=== PATIENT | female | born 1945 | race Caucasian/White ===

== ENCOUNTER → 2016-10-11 | Outpatient (CLI) | payer OTHER ==
[2013-03-11 11:38] VITALS: BP 167/78
--- NOTE | 2016-10-15 16:28 | MRI ---
History: Left knee pain for 1 month. Left knee meniscus derangement. Technique: Multiplanar, multi sequence MR imaging of the left knee was performed without IV contrast . Comparison: Bilateral knee radiographs dated 09/18/2016. Findings: There is increased T2 signal within the anteromedial aspect of the ACL distally, suggesting a partia l thickness tear of the anteromedial bundle best demonstrated on coronal PD fat sat images 17 and 18 series 701. The posterior cruciate ligament is intact. There is a complex tear involving the body and posterior horn of the medial meniscus, with an unders urface flap component involving the body. A small inferiorly displaced flap is seen within the menis cyndi tibial recess as seen on coronal PD fat sat images 14-17. There is a horizontal cleavage tear in volving the body of the lateral meniscus. This is seen on coronal PD fat sat image 19. The medial collateral ligament demonstrates a partial thickness tear distally at its tibial insertio n. There is edema superficial to the MCL. The proximal MCL appears mildly thickened. The iliotibial band, fibular collateral ligament, biceps femoris tendon are intact. The quadriceps and the patellar tendons are intact. There is a small joint effusion. There is a minimally depressed medial tibial plateau fracture. Subcortical fracture line measures 1. 7 cm transverse by 1.9 cm AP dimension there is approximate 2 mm of cortical depression within the c entral aspect medial tibial plateau. There is mainly comminuted fragment along the medial corner of the medial tibial plateau. There is mild fissuring of the overlying articular cartilage with no foca l full-thickness cartilage defect demonstrated. There is partial thickness chondral fissuring noted along the medial femoral condyle. The patella is of normal morphology with 3 mm of lateral patellar subluxation. There is a partial th ickness tear of the medial retinaculum at the femoral attachment there is grade 3 chondromalacia kierra ng the medial patellar facet. There is edema and thickening within the semimembranosus tendon suggesting a partial thickness tear. There is fluid within the media gastrocnemius-semimembranosus bursa which is dissecting distally al ramone the medial gastrocnemius and medial aspect of proximal tibia. Popliteal cyst measures up to 3 cm in greatest transverse dimension by 6 mm by proximal 4.7 cm craniocaudal. There is a 7 mm low signa l structure within the popliteal cyst which may be secondary to synovial thickening /synovitis or an osteochondral loose body. There is edema within popliteus which may be secondary to the adjacent ti bial fracture traverses grade 2 myotendinous strain. There is perifascial edema noted. Impression: 1. Complex tear involving the body and posterior horn of the medial meniscus, with an undersurface f lap component and displaced meniscal flap within the meniscal tibial recess. There is a horizontal c leavage tear of the lateral meniscus body. 2. Medial tibial plateau fracture with approximate 2 mm of cortical depression centrally and mild ov erlying chondral fissuring. 3. Partial thickness tear of the medial collateral ligament. Partial thickness tear of the medial pa tellar retinaculum is also noted at the femoral attachment. 4. Partial thickness tear of the semimembranosus tendon at its insertion. 5. Edema within popliteus may be secondary to grade 2 myotendinous strain or reactive secondary to t he adjacent tibial fracture. 6. Popliteal cyst containing a 7 mm low signal within it which may be secondary to synovial thickeni ng/synovitis versus a loose body. 7. Other findings as discussed above. Reported By:
== END | disposition home or self-care (01) ==
LOC: RAD 07:58
PROVIDERS: ATTEND Specialist
DX: S83.232A Complex tear of medial meniscus, current injury, left knee, initial encounter (principal); S82.142A Displaced bicondylar fracture of left tibia, initial encounter for closed fracture; S83.412A Sprain of medial collateral ligament of left knee, initial encounter; M71.22 Synovial cyst of popliteal space [Baker], left knee; R60.0 Localized edema
CPT/HCPCS: 73721